=== PATIENT | male | born 1955 | race Caucasian/White ===

== ENCOUNTER 2016-03-04 13:40 | Emergency (ER) | payer OTHER ==
[~2016-03-04] VITALS: Ht 175.3 cm; Wt 83.9 kg
[2016-03-04] MEDS ORDERED: morphine INJ 10 MG/ML 1ML (SYR OR VIAL) IM ONE (14:00)
--- NOTE | 2016-03-04 14:01 | ED Back Pain ---
General Chief Complaint: Back Problems Stated Complaint: BACK/LEFT HIP PAIN Source of Information: Patient, Family Exam Limitations: No Limitations History of Present Illness Time Seen by Provider: 13:57 Initial Comments To ER complaint by his with reports of low left back pain that radiates down the lateral aspect of the left thigh terminating in the mid thigh. States that he had the pain in his low back last weekend after playing catch with family members. There was no fall but he believes he twisted wrong which caused the pain. Upon awakening this morning he was nearly pain-free as his pain had been improving over the past week. However, he went outside and nearly fell on the ice. He did not fall but again twisted and had a recurrence and worsening of the left low back pain without radicular symptoms down the lateral aspect of the left thigh. Denies any loss of bowel or bladder control. Denies any numbness of genitals or weakness of legs. He did take 4 motrin OTC at home with some improvement. Location: Lumbar Spine, Paraspinous Muscles Timing/Duration: 4-6 Hours Severity: Moderate Modifying Factors: Worse With Movement Associated Symptoms: denies symptoms Allergies and Home Medications Allergies Coded Allergies: No Known Drug Allergies (Unverified , 03/04/16) Constitutional: see HPINo chills, No fever, No weakness EENTM: see HPI Respiratory: no symptoms reported Cardiovascular: no symptoms reported Genitourinary: no symptoms reported Musculoskeletal: see HPI back pain Skin: no symptoms reported Psychiatric/Neurological: No Symptoms Reported Past Gkyowbq-Rejxxh-Zrbeyv Hx Patient Social History Recent Foreign Travel: No Contact w/Someone Who Travel: No Physical Exam Vital Signs Vital Sign - Last 12Hours 03/04/16 13:49 Temp 98.2 Pulse 68 Resp 20 B/P 132/74 O2 Delivery Room Air Capillary Refill : General Appearance: No Apparent Distress WD/WN HEENT: PERRL/EOMI TMs Normal Respiratory: No Accessory Muscle Use No Respiratory Distress Gastrointestinal: Non Tender Soft Back: Normal InspectionNo Muscle Spasm, No Vertebral Tenderness Extremity: Normal Capillary Refill Normal Inspection Neurologic/Psychiatric: Alert Oriented x3 No Motor/Sensory Deficits Normal Mood/Affect Skin: Normal Color Warm/Dry Progress/Results/Core Measures Results/Orders My Orders Orders-YOVANI GARCIA APRN Morphine Injection (Morphine Injection (03/04/16 14:00) Ct Lumbar Spine Wo (03/04/16 13:57) Medications Given in ED Current Medications Medications Dose Ordered Sig/Lili Route Start Time Stop Time Status Last Admin Dose Admin Morphine Sulfate 8 mg ONCE ONCE IM 03/04/16 14:00 03/04/16 14:01 DC 03/04/16 14:04 8 MG Vital Signs/I&O Vital Sign - Last 12Hours 03/04/16 13:49 Temp 98.2 Pulse 68 Resp 20 B/P 132/74 O2 Delivery Room Air Diagnostic Imaging Diagonstic Imaging: CT Comments NAME: JENNIFER CRUZ [facility] REC#: [id number] PT STATUS: REG ER : 1955 PHYSICIAN: YOVANI GARCIA APRN ADMIT DATE: 03/04/16/ER Draft Date of Exam:03/04/16 CT LUMBAR SPINE WO PROCEDURE: CT lumbar spine without contrast. TECHNIQUE: Multiple contiguous axial images were obtained through the lumbar spine without the use of intravenous contrast. Sagittal and coronal reformations were then performed. INDICATION: 2 weeks history of worsening severity left leg pain. I have no priors. Reconstruction views revealed normal lumbar vertebral body heights aligned anatomically. There is anterior endplate osteophytes with multilevel degenerative disc space narrowing greatest at L3-L4, L4-L5 and L5-S1. There is thickening of the ligament flavum and hypertrophic facet arthrosis throughout the mid to lower lumbar spine. At the L3-L4 level the constellation of findings mildly stenosed the central canal with no substantial foraminal narrowing. At L4-L5 there is moderate canal with moderate right and moderate to severe left foraminal narrowing. At the L5-S1 level, there is mild canal with moderate right and pojz-sa-bjzjkeyk left foraminal stenosis. No fracture. Pedicles and pars intact. IMPRESSION: Spondylosis and facet arthrosis with multilevel mid to lower lumbar spinal stenoses involving central canal and neural foramen as listed. However, no malalignment or acute/chronic fracture identified. Dictated on workstation # [id number] Dict: 03/04/16 1432 Trans: 03/04/16 1441 [facility] [id number] Interpreted by: BUDDY GAY Electronically signed by: Departure Impression Impression: Primary Impression: Lumbar radicular pain Additional Impression: Lumbar stenosis Disposition: 01 HOME, SELF-CARE Condition: Stable Departure-Patient Inst. Decision time for Depature: 14:45 Referrals: CORINNE ARTEAGA BRIAN J MD NO,LOCAL PHYSICIAN (PCP) Primary Care Physician Patient Instructions: Radiculopathy (DC), Spinal Stenosis (DC) Add. Discharge Instructions: 1. Follow up with Dr Wise or Dr Arteaga in 1-2 weeks if no improvement in pain 2. Medication as directed 3. REturn to ER for any concerns or worsening All discharge instructions reviewed with patient and/or family. Voiced understanding. Scripts [flexeril ] No Conflict Check5 Mg PO TID PRN PAIN #30 Prov:YOVANI GARCIA STACK YIELD ENGINEER 03/04/16 Prednisone 20 Mg Tab40 Mg PO DAILY #8 TAB Prov:YOVANI GARCIA APRN 03/04/16 YOVANI GARCIA APRN Mar 04, 2016 14:01
--- NOTE | 2016-03-04 14:41 | Diagnostic Imaging Report ---
PROCEDURE: CT lumbar spine without contrast. TECHNIQUE: Multiple contiguous axial images were obtained through the lumbar spine without the use of intravenous contrast. Sagittal and coronal reformations were then performed. INDICATION: 2 weeks history of worsening severity left leg pain. I have no priors. Reconstruction views revealed normal lumbar vertebral body heights aligned anatomically. There is anterior endplate osteophytes with multilevel degenerative disc space narrowing greatest at L3-L4, L4-L5 and L5-S1. There is thickening of the ligament flavum and hypertrophic facet arthrosis throughout the mid to lower lumbar spine. At the L3-L4 level the constellation of findings mildly stenosed the central canal with no substantial foraminal narrowing. At L4-L5 there is moderate canal with moderate right and moderate to severe left foraminal narrowing. At the L5-S1 level, there is mild canal with moderate right and uqtc-jx-abvgzhow left foraminal stenosis. No fracture. Pedicles and pars intact. IMPRESSION: Spondylosis and facet arthrosis with multilevel mid to lower lumbar spinal stenoses involving central canal and neural foramen as listed. However, no malalignment or acute/chronic fracture identified. Dictated by: Dictated on workstation # [id number]
[2016-03-04] MEDS ORDERED: flexeril PO (14:47)
[2016-03-04] MEDS ORDERED: PRD20T PO (14:47)
[2016-03-04 14:54] VITALS: BP 128/73
== END 2016-03-04 14:54 | disposition home or self-care (01) ==
LOC: ER 13:44
DX: M47.26 Other spondylosis with radiculopathy, lumbar region (principal); M48.06 Spinal stenosis, lumbar region
CPT/HCPCS: 72131; 96372

== ENCOUNTER → 2016-03-12 | Outpatient (CLI) | payer OTHER ==
[~2016-03-12] MED LIST: PRD20T PO; flexeril PO
--- OUTSIDE RECORDS SUMMARY | 2016-03-12 11:12 | XMS REPORT | Continuity of Care Document ---
Author Author [facility] Organization [facility] Address Unknown Phone Unavailable Care Team Providers Care Channel Worker Name Role Phone NO, LOCAL PHYSICIAN PCP Unavailable Insurance Providers Payer Name Policy Number Subscriber Name Relationship Unknown Advance Directives Directive Response Recorded Date/Time Advance Directives No 03/04/16 1:49pm Resuscitation Status Full Code 03/04/16 1:49pm Chief Complaint and Reason for Visit Chief Complaint Back Problems Reason for Visit [id number] Problems Active Problems Medical Problem Onset Date Status Lumbar radicular pain Unknown Acute Lumbar stenosis Unknown Acute Medications Current Home Medications Medication Dose Units Route Directions Days/Qty Instructions Start Date Prednisone 20 Mg 40 Mg Oral Daily 8 03/04/16 [Flexeril ] 5 Mg Oral Three Times A Day as needed for Pain 30 03/04/16 Social History Social History Problem Response Recorded Date/Time Alcohol Use Occasionally Uses 03/04/2016 1:49pm Recreational Drug Use No 03/04/2016 1:49pm Recent Foreign Travel No 03/04/2016 1:49pm Recent Infectious Disease Exposure No 03/04/2016 1:49pm Hospitalization with Isolation Denies 03/04/2016 1:49pm Smoking Status Never a Smoker 03/04/2016 1:49pm Recent Hopitalizations No 03/04/2016 1:49pm Hospitalization with Isolation Denies 03/04/2016 1:49pm Query Response Start Date Stop Date Smoking Status Never a Smoker Hospital Discharge Instructions No hospital discharge instructions. Plan of Care Discharge Date 03/04/16 2:54pm Disposition 01 HOME, SELF-CARE Condition at Discharge Stable Instructions/Education Provided Radiculopathy (DC) Spinal Stenosis (DC) Prescriptions See Medication Section Referrals CORINNE ARTEAGA BRIAN J MD - NO,LOCAL PHYSICIAN - Primary Care Physician Additional Instructions/Education 1. Follow up with Dr Wise or Dr Arteaga in 1 -2 weeks if no improvement in pain 2. Medication as directed 3. REturn to ER for any concerns or worsening All discharge instructions reviewed with patient and/or family. Voiced understanding. Functional Status No functional status results. Allergies, Adverse Reactions, Alerts No known allergies. Immunizations No immunization records. Vital Signs Acute Vital Signs Vital Response Date/Time Temperature (Fahrenheit) 98.2 degrees F (97.6 - 99.5) 03/04/2016 1:49pm Temperature (Calculated Celsius) 36.27986 degrees C (36.4 - 37.5) 03/04/2016 1:49pm Temperature Source Temporal 03/04/2016 1:49pm Pulse Rate (adult) 68 bpm (60 - 90) 03/04/2016 1:49pm Respiratory Rate 20 bpm (12 - 24) 03/04/2016 1:49pm Blood Pressure 132/74 mm Hg 03/04/2016 1:49pm Blood Pressure Mean 93 mm Hg 03/04/2016 1:49pm Pain Numeric Pain Scale 6 03/04/2016 2:04pm Height (Feet) 5 feet 03/04/2016 1:49pm Height (Inches) 9 inches 03/04/2016 1:49pm Height (Calculated Centimeters) 175.219701 cm 03/04/2016 1:49pm Weight (Pounds) 185 pounds 03/04/2016 1:49pm Weight (Calculated Kilograms) 83.984978 kilograms 03/04/2016 1:49pm Capillary Refill Capillary Refill Less Than 3 Seconds 03/04/2016 1:49pm Height 5 ft 9 in Weight 185 lb Body Mass Index 27.3 kg/m^2 Results No known relevant diagnostic tests, laboratory data and/or discharge summary. Procedures No known history of procedures. Encounters Encounter Location Arrival/Admit Date Discharge/Depart Date Attending Provider Departed Emergency Room [facility] 03/04/16 1:44pm 03/04 2:54pm YOVANI GARCIA APRN Recent Diagnosis
--- NOTE | 2016-03-12 13:33 | Diagnostic Imaging Report ---
PROCEDURE: MRI lumbar spine. TECHNIQUE: Multiplanar, multisequence MRI of the lumbar spine was performed without contrast. INDICATION: Back pain. FINDINGS: Please note that there is mild motion artifact on all sequences but most prominent on the axials. Repeated scans were performed but the patient could not tolerate the MRI table and did not lay still for most of the exam. This could obscure particular subtle abnormalities. Diagnostic quality is acceptable for major abnormalities. There is a transitional lumbosacral junction. It appears that L1 has rudimentary ribs. There is a rudimentary disc at S1/S2 level with completely fused sacral ala between S1 and the S2. The last well-formed disc will be counted as L5/S1 in this report. The vertebral body heights are preserved. The alignment of the posterior spinal line is satisfactory. There is disc desiccation at all levels with mild disc height loss in the mid to lower lumbar spine levels. There is no suspicious marrow signal abnormality. There is, however, mild marrow edema around intervertebral discs near endplates of multiple levels. The cauda equina and conus medullaris appear grossly unremarkable. The conus terminates at L1 level. At T11/T12, there is a mild disc herniation with no significant spinal canal stenosis. T12/L1: There is no disc herniation. No spinal canal stenosis or foraminal narrowing. L1/L2: There is no disc herniation. There is mild facet hypertrophy. No spinal canal or foramina stenosis. L2/L3: There is a mild disc herniation and mild ligamentous hypertrophy. No spinal canal or foraminal stenosis. L3/L4: There is a minimal disc bulge and mild facet hypertrophy. No spinal canal stenosis. There is mild bilateral foraminal stenosis. L4/L5: There is a diffuse disc bulge with a superimposed left paracentral disc extrusion that has a caudally migrated component with about 1.3 cm caudal migration from the disc level. This is associated with moderate facet and ligamentous hypertrophy. There is moderate central canal stenosis reducing the AP dimension of the canal to 7 mm. There is also suggestion of bilateral probably moderate degree of lateral recess stenosis. The foramina demonstrate bilateral stenosis moderate to severe bilaterally. L5/S1: There is mild diffuse disc bulge and moderate facet arthropathy. There is no significant central canal stenosis. There is bilateral mild to moderate narrowing of the lateral recess. There is bilateral foraminal stenosis moderate on the left and moderate to severe on the right side. IMPRESSION: 1. There is transitional lumbosacral junction. The vertebral count on this report is based on rudimentary accessory ribs at L1 level and rudimentary disc at S1/S2 level. 2. There is motion artifact which obscures some of the details on this exam. 3. There is moderate spinal canal stenosis at L4/L5 level and moderate to severe foraminal stenosis bilaterally at L4/L5 and on the right side at L5/S1 level. Other findings as above. Dictated by: Dictated on workstation # [id number]
== END ==
LOC: RAD 11:08
PROVIDERS: ATTEND Specialist
DX: M54.16 Radiculopathy, lumbar region (principal)
CPT/HCPCS: 72148

== ENCOUNTER 2016-04-19 08:28 | Outpatient (RCR) | payer OTHER ==
--- OUTSIDE RECORDS SUMMARY | 2016-03-23 09:32 | XMS REPORT | Continuity of Care Document ---
Author Author [facility] Organization [facility] Address Unknown Phone Unavailable Care Team Providers Care Loan Review Analyst Name Role Phone NO, LOCAL PHYSICIAN PCP Unavailable Insurance Providers Payer Name Policy Number Subscriber Name Relationship Unknown Advance Directives Directive Response Recorded Date/Time Advance Directives No 03/04/16 1:49pm Resuscitation Status Full Code 03/04/16 1:49pm Chief Complaint and Reason for Visit Chief Complaint Back Problems Reason for Visit [id number] Problems Active Problems Medical Problem Onset Date [...] - 99.5) 03/04/2016 1:49pm Temperature (Calculated Celsius) 36.83500 degrees C (36.4 - 37.5) 03/04/2016 1:49pm [...] 9 inches 03/04/2016 1:49pm Height (Calculated Centimeters) 175.697884 cm 03/04/2016 1:49pm Weight (Pounds) 185 pounds 03/04/2016 1:49pm Weight (Calculated Kilograms) 83.499190 kilograms 03/04/2016 1:49pm Capillary Refill Capillary Refill Less Than 3 Seconds 03/04/2016 1:49pm Height 5 ft 9 in Weight 185 lb Body Mass Index 27.3 kg/m^2 Results No known relevant diagnostic tests, laboratory data and/or discharge summary. Procedures No known history of procedures. Encounters Encounter Location Arrival/Admit Date Discharge/Depart Date Attending Provider Departed Emergency Room [facility] 03/04/16 1:44pm 03/04 2:54pm YOVANI GARCIA APRN Recent Diagnosis
== END 2016-05-10 14:54 | disposition home or self-care (01) ==
PROVIDERS: ATTEND Orthopaedic Surgery
DX: M54.9 Dorsalgia, unspecified (principal)